=== PATIENT | male | born 1995 | race Asian ===

== ENCOUNTER 2017-06-06 23:01 | Inpatient (IN) | payer OTHER ==
[2017-06-07] MEDS ORDERED: MOM 30ML SUSPENSION UDC PO (00:45)
[2017-06-07] MEDS ORDERED: MAALOX 30 ML SUSP *UDC PO (00:45)
[2017-06-07] MEDS ORDERED: traZODone 50 MG TAB PO (00:45)
[2017-06-07] MEDS ORDERED: ACETAMINOPHEN TAB 650MG DOSE (2X325MG) PO (00:45)
[2017-06-07 00:55] LABS: HEMATOCRIT 42.4 % (42.0-52.0); HEMOGLOBIN 14.4 g/dl (13.5-17.5); MEAN CORPUSCULAR HEMOGLOBIN 30.1 pg (27.0-33.0); MEAN CORPUSCULAR VOLUME 88.7 fl (80.0-96.0); PLATELET COUNT, AUTOMATED 203 10^3/uL (150-450); RED BLOOD COUNT 4.78 10^6/uL (4.30-6.10); RED CELL DISTRIBUTION WIDTH 11.3 % (11.5-14.5); WHITE BLOOD COUNT 7.2 10^3/uL (4.0-10.0)
[2017-06-07 01:28] LABS: AMPHETAMINES LEVEL URINE NEGATIVE (NEGATIVE); BARBITURATES URINE NEGATIVE (NEGATIVE); BENZODIAZEPINES URINE NEGATIVE (NEGATIVE); CANNABINOIDS URINE NEGATIVE (NEGATIVE); COCAINE METABOLITE URINE NEGATIVE (NEGATIVE); METHADONE URINE NEGATIVE (NEGATIVE); OPIATES URINE NEGATIVE (NEGATIVE); PHENCYCLIDINE URINE NEGATIVE (NEGATIVE)
[2017-06-07 01:33] LABS: ALBUMIN 4.1 GM/DL (3.2-5.2); ALBUMIN/GLOBULIN RATIO 1.24 (1.00-1.93); ALKALINE PHOSPHATASE 66 U/L (45-117); ALT/SGPT 19 U/L (12-78); ANION GAP 6 MEQ/L (8-16); AST/SGOT 18 U/L (7-37); BILIRUBIN,DIRECT 0.1 MG/DL (0.0-0.2); BILIRUBIN,TOTAL 0.3 MG/DL (0.2-1.0); BLOOD UREA NITROGEN 15 MG/DL (7-18); CALCIUM LEVEL 8.9 MG/DL (8.5-10.1); CARBON DIOXIDE LEVEL 31 MEQ/L (21-32); CHLORIDE LEVEL 105 MEQ/L (98-107); CREATININE FOR GFR 0.91 MG/DL (0.70-1.30); ETHYL ALCOHOL (ETHANOL) < 0.003 % (0.000-0.010); GLUCOSE, FASTING 67 MG/DL (70-100); POTASSIUM SERUM 3.8 MEQ/L (3.5-5.1); SALICYLATE LEVEL < 1.7 MG/DL (5.0-30.0); SODIUM LEVEL 142 MEQ/L (136-145); TOTAL PROTEIN 7.4 GM/DL (6.4-8.2)
[2017-06-07 01:36] LABS: ACETAMINOPHEN LEVEL < 2.0 UG/ML (10.0-30.0)
[2017-06-08] MEDS ORDERED: NICOTINE 21MG/24HR 1 EA TRANSDERMAL TD (09:00)
[2017-06-10] MEDS: SERTRALINE HCL 50 MG TAB PO (09:00)
[2017-06-11] MEDS: SERTRALINE HCL 50 MG TAB PO (08:42)
[2017-06-12] MEDS: SERTRALINE HCL 50 MG TAB PO (08:49)
== END 2017-06-12 12:50 | disposition home or self-care (01) | DRG 885 ==
LOC: M ED 23:01 → M ED INP 06-07 00:44 → M PSY 06-07 02:12
DX: F32.2 Major depressive disorder, single episode, severe without psychotic features (principal); F43.10 Post-traumatic stress disorder, unspecified; F60.9 Personality disorder, unspecified; Z79.899 Other long term (current) drug therapy

== ENCOUNTER 2018-05-28 17:42 | Emergency (ER) | payer OTHER ==
[~2018-05-28] VITALS: Ht 167.6 cm; Wt 69.5 kg
[~2018-05-28 17:42] MED LIST: CALC1TAB30 PO; GLUC500T53 PO
[2018-05-28 19:38] VITALS: BP 122/60
== END 2018-05-28 19:41 | disposition home or self-care (01) ==
LOC: M ED 17:42
DX: F43.0 Acute stress reaction (principal); Z79.899 Other long term (current) drug therapy